=== PATIENT | male | born 1950 | race Caucasian/White ===

== ENCOUNTER 2019-05-05 15:02 | Inpatient (IN) | payer MEDICARE ==
[~2019-05-05] VITALS: Ht 177.8 cm; Wt 121.5 kg
[2019-05-05] MEDS ORDERED: ONDANSETRON 2MG/ML, 2ML IVPush ONE (16:30)
[2019-05-05] MEDS ORDERED: SODIUM CHLORIDE FLUSH 10ML SYR IVF ONE (16:30)
[2019-05-05] MEDS ORDERED: FUROSEMIDE 40 MG/4 ML IV ONE (16:30)
[2019-05-05 17:10] LABS: CULTURE INDICATED? YES; MICROSCOPIC INDICATED
[2019-05-05 17:24] LABS: ALANINE AMINOTRANSFERASE 23 U/L (12-78); ALBUMIN 2.4 g/dL (3.4-5.0); ANION GAP 5 mmol/L (5-15); CALCIUM 8.3 mg/dL (8.5-10.1); CHLORIDE 100 mmol/L (98-107)
[2019-05-05 17:28] LABS: ALKALINE PHOSPHATASE 133 U/L (45-117); BILIRUBIN,TOTAL 0.4 mg/dL (0.2-1.0); TOTAL PROTEIN 6.1 g/dL (6.4-8.2)
[2019-05-05 17:37] LABS: MD YES
[2019-05-05 17:38] LABS: MEAN CORPUSCULAR HEMOGLOBIN 25.6 pg (27.5-34.5); MEAN CORPUSCULAR HGB CONC 30.8 g/dL (33.2-36.2); MEAN CORPUSCULAR VOLUME 83.3 fL (81-97); MEAN PLATELET VOLUME 7.8 fL (7.4-10.4); PLATELET COUNT 318 x10^3/uL (130-400); RED BLOOD COUNT 2.62 x10^6/uL (4.38-5.82); RED CELL DISTRIBUTION WIDTH 18.3 % (9.4-14.8)
[2019-05-05 17:42] LABS: CLOSTRIDIUM DIFFICILE ANTIGEN NEGATIVE; CLOSTRIDIUM DIFFICILE TOXIN NEGATIVE (Negative)
[2019-05-05] MEDS ORDERED: ONDANSETRON 2MG/ML, 2ML ONE (17:43)
[2019-05-05] MEDS ORDERED: FUROSEMIDE 40 MG/4 ML ONE (17:43)
[2019-05-05] MEDS ORDERED: MORPHINE SULFATE 4 MG/ML, 1ML ONE ×2 (17:44→18:16)
[2019-05-05] MEDS: MORPHINE SULFATE 4 MG/ML, 1ML IVPush PRN ×2 (17:49→18:30)
[2019-05-05 17:51] LABS: ANISOCYTOSIS 1+; BAND#(MANUAL) 0.13 x10^3/uL; BANDS%(MANUAL) 2 % (0-7); LYMPH#(MANUAL) 0.52 x10^3/uL (1-3.4); LYMPHS% (MANUAL) 8 % (22-44); MICROCYTOSIS 1+; MONOS#(MANUAL) 0.26 x10^3/uL (0.3-2.7); MONOS% (MANUAL) 4 % (2-9); POLYCHROMASIA 1+; SEG#(MANUAL) 5.59 x10^3/uL (1.8-6.8); SEGS% (MANUAL) 86 % (42-75)
[2019-05-05 17:52] LABS: <PLATELET ESTIMATE> ADEQUATE; HYPOCHROMIA 2+
[2019-05-05 17:53] LABS: <PLT MORPHOLOGY> NORMAL PLT MORPH
[2019-05-05] MEDS ORDERED: CEFTRIAXONE PMX 1GM/50ML 50 ML IVPB ONE (18:00)
[2019-05-05] MEDS ORDERED: NS + 40MEQ KCL 1,000 ML IV ONE (18:32)
--- NOTE | 2019-05-05 18:35 | NUR ---
MD Mckenzie notified of pt's increasing O2 need & requested potassium
--- NOTE | 2019-05-05 18:41 | NUR ---
MD Mckenzie to recheck pt, I have attempted to esablish a 2nd IV x 2 w/o success, blood cultures x 2 & type & screen walked to lab.
--- NOTE | 2019-05-05 19:16 | NUR ---
REPORT FROM IRENE LANIER. YOHAN LANIER AT BEDSIDE TO TRY TO PLACE ANOTHER PIV. CALL LIGHT IN REACH
[2019-05-05 19:42] VITALS: BP 125/65
[2019-05-05 19:58] VITALS: BP 126/78
[2019-05-05] MEDS ORDERED: CARV6.252 PO (20:01)
[2019-05-05] MEDS ORDERED: LISI40TA PO (20:01)
[2019-05-05] MEDS ORDERED: SPIR25TA5 PO (20:04)
[2019-05-05] MEDS ORDERED: AMLO-150 PO (20:04)
[2019-05-05] MEDS ORDERED: FURO40TA6 PO (20:04)
[2019-05-05] MEDS ORDERED: PARO40TA3 PO (20:04)
[2019-05-05] MEDS ORDERED: TIOT18CA INH (20:04)
[2019-05-05] MEDS ORDERED: FLUT1DIS3 INH (20:04)
--- NOTE | 2019-05-05 20:04 | NUR ---
BLOOD RUNNING. PT TOLERATING WELL. VSS. MED REC COMPLETE. WAITING FOR ADMIT ORDERS. CALL LIGHT IN REACH
[2019-05-05] MEDS ORDERED: CEFTRIAXONE PMX 1GM/50ML 50 ML ONE (20:08)
[2019-05-05 20:14] VITALS: BP 134/65
[2019-05-05] MEDS ORDERED: ONDANSETRON 2MG/ML, 2ML IVPush PRN (20:30)
[2019-05-05] MEDS ORDERED: HEPARIN 5,000 UNITS/ML, 1ML SQ SCH (20:30)
[2019-05-05] MEDS ORDERED: morphine SULFATE 10 MG/ML, 1ML IVPush PRN (20:30)
[2019-05-05] MEDS ORDERED: hydrALAzine 20 MG/ML, 1ML IVPush PRN (20:30)
[2019-05-05] MEDS ORDERED: BISACODYL 10 MG SUPP PR PRN (20:30)
[2019-05-05] MEDS ORDERED: ACETAMINOPHEN 325 MG TABLET PO PRN (20:30)
[2019-05-05] MEDS ORDERED: DOCUSATE 100 MG CAPSULE PO PRN (20:30)
[2019-05-05] MEDS ORDERED: PROMETHAZINE 25 MG/ML, 1ML IM PRN (20:30)
[2019-05-05] MEDS ORDERED: POTASSIUM CHLORIDE 20 MEQ TAB.ER.PRT PO ONE (20:30)
[2019-05-05] MEDS ORDERED: POLYETHYLENE GLYCOL 17 GM PACKET PO PRN (20:30)
[2019-05-05] MEDS ORDERED: ONDANSETRON ODT 4 MG PO PRN (20:30)
[2019-05-05 20:58] LABS: FREE T4 (FREE THYROXINE) 1.27 ng/dL (0.76-1.46)
[2019-05-05] MEDS ORDERED: ALBUTEROL/IPRATROPIUM 2.5MG/0.5MG, 3 ML NPPB SCH (21:00)
[2019-05-05] MEDS ORDERED: CEFTRIAXONE PMX 1GM/50ML 50 ML IV ONE (21:00)
--- NOTE | 2019-05-05 21:00 | NUR ---
PT SWITCHED TO OXY MASK AND TOLERATING WELL. VSS. CALL LIGHT IN REACH
[2019-05-05] MEDS: NICOTINE 14MG/24 HR PATCH.TD24 TD SCH (22:57)
[2019-05-05] MEDS: CARVEDILOL 6.25 MG TABLET PO SCH (22:58)
[2019-05-05 23:09] VITALS: BP 147/92
[2019-05-06] MEDS ORDERED: ALBUTEROL/IPRATROPIUM 2.5MG/0.5MG, 3 ML NPPB PRN
[2019-05-06 01:23] VITALS: BP 115/69
[2019-05-06] MEDS: ALBUTEROL/IPRATROPIUM 2.5MG/0.5MG, 3 ML NPPB SCH ×4 (03:00→20:20)
[2019-05-06 04:09] VITALS: BP 147/92
[2019-05-06 05:04] LABS: MEAN CORPUSCULAR HEMOGLOBIN 26.4 pg (27.5-34.5); MEAN CORPUSCULAR HGB CONC 31.2 g/dL (33.2-36.2); MEAN CORPUSCULAR VOLUME 84.7 fL (81-97); MEAN PLATELET VOLUME 7.9 fL (7.4-10.4); PLATELET COUNT 271 x10^3/uL (130-400); RED BLOOD COUNT 2.65 x10^6/uL (4.38-5.82); RED CELL DISTRIBUTION WIDTH 17.6 % (9.4-14.8)
[2019-05-06 05:18] LABS: ALBUMIN 2.1 g/dL (3.4-5.0); ANION GAP 3 mmol/L (5-15); CALCIUM 8.1 mg/dL (8.5-10.1); CHLORIDE 102 mmol/L (98-107)
[2019-05-06 05:25] LABS: ALANINE AMINOTRANSFERASE 22 U/L (12-78); ALKALINE PHOSPHATASE 115 U/L (45-117); BILIRUBIN,TOTAL 0.5 mg/dL (0.2-1.0); CHOL/HDL RATIO 1.4; CHOLESTEROL, TOTAL 105 mg/dL (140-239); CREATININE 2.87 mg/dL (0.7-1.3); HDL CHOL % 71 % (26-37); HDL CHOLESTEROL (DIRECT) 75 mg/dL (40-60); LDL CHOLESTEROL,CALCULATED 18 mg/dL (54-169); LDL/HDL RATIO 0.2 (0.5-3.0); TOTAL PROTEIN 5.6 g/dL (6.4-8.2); TRIGLYCERIDES 58 mg/dL (50-200); VLDL CHOLESTEROL 12 mg/dL (0-25)
[2019-05-06 05:49] LABS: BASOPHILS # (AUTO) 0.11 x10^3/uL (0-0.1); BASOPHILS % (AUTO) 2 % (0-1); EOSINOPHILS # (AUTO) 0.11 x10^3/uL (0-0.4); EOSINOPHILS % (AUTO) 2 % (1-7); LYMPHOCYTES # (AUTO) 1.17 x10^3/uL (1-3.4); LYMPHOCYTES % (AUTO) 17 % (22-44); MD SCAN; MONOCYTES % (AUTO) 10 % (2-9); NEUTROPHILS # (AUTO) 4.89 x10^3/uL (1.8-6.8); NEUTROPHILS % (AUTO) 70 % (42-75)
[2019-05-06] MEDS: OXYcodone IR 5MG TABLET PO PRN ×2 (06:04→10:37)
[2019-05-06] MEDS: FUROSEMIDE 20 MG/2 ML IV SCH ×2 (06:06→17:58)
[2019-05-06 08:15] VITALS: BP 144/68
[2019-05-06] MEDS: POTASSIUM CHLORIDE 20 MEQ TAB.ER.PRT PO SCH (08:31)
[2019-05-06] MEDS: CARVEDILOL 6.25 MG TABLET PO SCH ×2 (08:32→20:04)
[2019-05-06] MEDS: PAROXETINE 20 MG TABLET PO SCH (08:33)
[2019-05-06] MEDS: AMLODIPINE 5 MG TABLET PO SCH (08:33)
[2019-05-06] MEDS ORDERED: TEMPLATE NON-FORMULARY MED. (Fluticasone/Salmeterol** (Advair 250-50 Diskus**) 1 PUFF) INH SCH (09:00)
[2019-05-06] MEDS ORDERED: IPRATROPIUM 0.5 MG/2.5 ML INHA NPPB SCH (09:00)
[2019-05-06] MEDS ORDERED: BUDESONIDE 0.5 MG/2 ML INHA NPPB SCH (09:00)
[2019-05-06] MEDS: BUDESONIDE 0.5 MG/2 ML INHA NPPB SCH ×2 (10:20→20:20)
[2019-05-06 14:30] VITALS: BP 100/62
[2019-05-06 20:02] VITALS: BP 114/55
[2019-05-06] MEDS: NICOTINE 14MG/24 HR PATCH.TD24 TD SCH (20:04)
[2019-05-06] MEDS ORDERED: PHARMACOKINETIC CONSULTATION MC ONE (23:30)
[2019-05-06] MEDS ORDERED: VANCOMYCIN PER PHARMACY MC PRN (23:30)
[2019-05-06] MEDS ORDERED: PHARMACOKINETIC MONITORING MC PRN (23:30)
[2019-05-06] MEDS ORDERED: VANCOMYCIN 2,300 MG in SODIUM CHLORIDE 0.9% 500 ML IV ONE (23:30)
[2019-05-07] VITALS (7 sets, daily range): BP systolic 97–164; BP diastolic 60–81
[2019-05-07] MEDS: ALBUTEROL/IPRATROPIUM 2.5MG/0.5MG, 3 ML NPPB SCH ×4 (02:44→19:20)
[2019-05-07 05:17] LABS: ANION GAP 4 mmol/L (5-15); CALCIUM 8.1 mg/dL (8.5-10.1); CHLORIDE 102 mmol/L (98-107); CREATININE 2.95 mg/dL (0.7-1.3)
[2019-05-07 05:25] LABS: MEAN CORPUSCULAR HEMOGLOBIN 26.1 pg (27.5-34.5); MEAN CORPUSCULAR HGB CONC 30.8 g/dL (33.2-36.2); MEAN CORPUSCULAR VOLUME 84.8 fL (81-97); MEAN PLATELET VOLUME 8.1 fL (7.4-10.4); PLATELET COUNT 242 x10^3/uL (130-400)
[2019-05-07 05:49] LABS: BASOPHILS # (AUTO) 0.08 x10^3/uL (0-0.1); BASOPHILS % (AUTO) 1 % (0-1); EOSINOPHILS # (AUTO) 0.16 x10^3/uL (0-0.4); EOSINOPHILS % (AUTO) 3 % (1-7); LYMPHOCYTES # (AUTO) 1.02 x10^3/uL (1-3.4); LYMPHOCYTES % (AUTO) 17 % (22-44); MD SCAN; MONOCYTES # (AUTO) 0.59 x10^3/uL (0.2-0.8); MONOCYTES % (AUTO) 10 % (2-9); NEUTROPHILS # (AUTO) 4.04 x10^3/uL (1.8-6.8); NEUTROPHILS % (AUTO) 69 % (42-75)
[2019-05-07] MEDS: CARVEDILOL 6.25 MG TABLET PO SCH ×2 (09:02→20:15)
[2019-05-07] MEDS: PAROXETINE 20 MG TABLET PO SCH (09:02)
[2019-05-07] MEDS: POTASSIUM CHLORIDE 20 MEQ TAB.ER.PRT PO SCH (09:02)
[2019-05-07] MEDS: FUROSEMIDE 20 MG/2 ML IV SCH ×2 (09:03→16:53)
[2019-05-07] MEDS: AMLODIPINE 5 MG TABLET PO SCH (09:03)
[2019-05-07] MEDS: BUDESONIDE 0.5 MG/2 ML INHA NPPB SCH ×2 (09:25→19:20)
[2019-05-07] MEDS: NICOTINE 14MG/24 HR PATCH.TD24 TD SCH (20:15)
[2019-05-08 02:54] VITALS: BP 143/79
[2019-05-08] MEDS: ALBUTEROL/IPRATROPIUM 2.5MG/0.5MG, 3 ML NPPB SCH ×4 (03:00→20:37)
[2019-05-08 05:26] LABS: BASOPHILS % (AUTO) 0 % (0-1); EOSINOPHILS # (AUTO) 0.19 x10^3/uL (0-0.4); EOSINOPHILS % (AUTO) 3 % (1-7); LYMPHOCYTES # (AUTO) 1.22 x10^3/uL (1-3.4); LYMPHOCYTES % (AUTO) 16 % (22-44); MD NO; MEAN CORPUSCULAR HEMOGLOBIN 26.6 pg (27.5-34.5); MEAN CORPUSCULAR HGB CONC 31.2 g/dL (33.2-36.2); MEAN CORPUSCULAR VOLUME 85.3 fL (81-97); MEAN PLATELET VOLUME 8.5 fL (7.4-10.4); MONOCYTES # (AUTO) 1.07 x10^3/uL (0.2-0.8); MONOCYTES % (AUTO) 14 % (2-9); NEUTROPHILS # (AUTO) 5.04 x10^3/uL (1.8-6.8); NEUTROPHILS % (AUTO) 67 % (42-75); PLATELET COUNT 241 x10^3/uL (130-400); RED BLOOD COUNT 2.91 x10^6/uL (4.38-5.82); RED CELL DISTRIBUTION WIDTH 18.1 % (9.4-14.8)
[2019-05-08 05:27] LABS: ANION GAP 3 mmol/L (5-15); CALCIUM 8.5 mg/dL (8.5-10.1); CHLORIDE 103 mmol/L (98-107); CREATININE 3.12 mg/dL (0.7-1.3)
[2019-05-08 05:28] LABS: VANCOMYCIN,RANDOM 14.8 mcg/mL
[2019-05-08] MEDS: AMLODIPINE 5 MG TABLET PO SCH (08:15)
[2019-05-08] MEDS: PAROXETINE 20 MG TABLET PO SCH (08:15)
[2019-05-08] MEDS: POTASSIUM CHLORIDE 20 MEQ TAB.ER.PRT PO SCH (08:15)
[2019-05-08] MEDS: CARVEDILOL 6.25 MG TABLET PO SCH ×2 (08:15→20:39)
[2019-05-08 08:47] VITALS: BP 147/79
[2019-05-08] MEDS ORDERED: FUROSEMIDE 20 MG TABLET PO SCH (09:00)
[2019-05-08] MEDS: BUDESONIDE 0.5 MG/2 ML INHA NPPB SCH ×2 (09:30→20:37)
[2019-05-08] MEDS ORDERED: POLYETHYLENE GLYCOL 17 GM PACKET NG PRN (12:30)
[2019-05-08] MEDS: SENNA/DOCUSATE TABLET PO SCH ×2 (14:34→20:39)
[2019-05-08] MEDS ORDERED: VANCOMYCIN 1,800 MG in SODIUM CHLORIDE 0.9% 250 ML IV SCH (15:00)
[2019-05-08 15:34] VITALS: BP 133/75
[2019-05-08 19:01] VITALS: BP 131/69
[2019-05-08] MEDS: NICOTINE 14MG/24 HR PATCH.TD24 TD SCH (20:38)
[2019-05-09] MEDS: ALBUTEROL/IPRATROPIUM 2.5MG/0.5MG, 3 ML NPPB SCH ×4 (03:05→20:52)
[2019-05-09 03:13] VITALS: BP 158/78
[2019-05-09 05:13] LABS: BASOPHILS % (AUTO) 0 % (0-1); EOSINOPHILS # (AUTO) 0.07 x10^3/uL (0-0.4); EOSINOPHILS % (AUTO) 1 % (1-7); LYMPHOCYTES # (AUTO) 1.18 x10^3/uL (1-3.4); LYMPHOCYTES % (AUTO) 16 % (22-44); MD NO; MEAN CORPUSCULAR VOLUME 83.8 fL (81-97); MONOCYTES # (AUTO) 0.97 x10^3/uL (0.2-0.8); MONOCYTES % (AUTO) 13 % (2-9); NEUTROPHILS # (AUTO) 5.37 x10^3/uL (1.8-6.8); NEUTROPHILS % (AUTO) 71 % (42-75); PLATELET COUNT 274 x10^3/uL (130-400); RED BLOOD COUNT 2.91 x10^6/uL (4.38-5.82); RED CELL DISTRIBUTION WIDTH 19.4 % (9.4-14.8)
[2019-05-09 05:24] LABS: ANION GAP 4 mmol/L (5-15); CALCIUM 8.8 mg/dL (8.5-10.1); CHLORIDE 102 mmol/L (98-107); CREATININE 2.86 mg/dL (0.7-1.3)
[2019-05-09 08:02] VITALS: BP 159/72
[2019-05-09] MEDS: BUDESONIDE 0.5 MG/2 ML INHA NPPB SCH ×2 (08:22→20:52)
[2019-05-09] MEDS: POTASSIUM CHLORIDE 20 MEQ TAB.ER.PRT PO SCH (08:32)
[2019-05-09] MEDS: AMLODIPINE 5 MG TABLET PO SCH (08:32)
[2019-05-09] MEDS: PAROXETINE 20 MG TABLET PO SCH (08:33)
[2019-05-09] MEDS: SENNA/DOCUSATE TABLET PO SCH ×2 (08:33→21:27)
[2019-05-09] MEDS: CARVEDILOL 6.25 MG TABLET PO SCH ×2 (08:33→21:27)
[2019-05-09 12:53] VITALS: BP 139/56
[2019-05-09 18:37] VITALS: BP 155/72
[2019-05-09] MEDS: NICOTINE 14MG/24 HR PATCH.TD24 TD SCH (21:27)
[2019-05-10 01:16] VITALS: BP 163/82
[2019-05-10] MEDS: ALBUTEROL/IPRATROPIUM 2.5MG/0.5MG, 3 ML NPPB SCH ×4 (03:25→21:16)
[2019-05-10 07:57] LABS: BASOPHILS # (AUTO) 0.01 x10^3/uL (0-0.1); BASOPHILS % (AUTO) 0 % (0-1); EOSINOPHILS # (AUTO) 0.19 x10^3/uL (0-0.4); EOSINOPHILS % (AUTO) 3 % (1-7); LYMPHOCYTES # (AUTO) 0.98 x10^3/uL (1-3.4); LYMPHOCYTES % (AUTO) 15 % (22-44); MD NO; MEAN CORPUSCULAR HGB CONC 30.8 g/dL (33.2-36.2); MEAN CORPUSCULAR VOLUME 84.3 fL (81-97); MEAN PLATELET VOLUME 7.4 fL (7.4-10.4); MONOCYTES # (AUTO) 0.91 x10^3/uL (0.2-0.8); MONOCYTES % (AUTO) 14 % (2-9); NEUTROPHILS # (AUTO) 4.45 x10^3/uL (1.8-6.8); NEUTROPHILS % (AUTO) 68 % (42-75); PLATELET COUNT 262 x10^3/uL (130-400); RED BLOOD COUNT 2.79 x10^6/uL (4.38-5.82); RED CELL DISTRIBUTION WIDTH 19.6 % (9.4-14.8)
[2019-05-10 08:04] LABS: ANION GAP 5 mmol/L (5-15); CALCIUM 9.1 mg/dL (8.5-10.1); CHLORIDE 106 mmol/L (98-107); CREATININE 2.65 mg/dL (0.7-1.3)
[2019-05-10 08:32] VITALS: BP 168/84
[2019-05-10] MEDS ORDERED: LISINOPRIL 20 MG TABLET PO SCH (09:00)
[2019-05-10] MEDS: BUDESONIDE 0.5 MG/2 ML INHA NPPB SCH ×2 (09:00→21:16)
[2019-05-10 09:25] VITALS: BP 167/77
[2019-05-10] MEDS: AMLODIPINE 5 MG TABLET PO SCH (09:29)
[2019-05-10] MEDS: PAROXETINE 20 MG TABLET PO SCH (09:29)
[2019-05-10] MEDS: SENNA/DOCUSATE TABLET PO SCH ×2 (09:29→21:42)
[2019-05-10] MEDS: CARVEDILOL 6.25 MG TABLET PO SCH ×2 (09:29→21:43)
[2019-05-10] MEDS: POTASSIUM CHLORIDE 20 MEQ TAB.ER.PRT PO SCH (09:30)
[2019-05-10] MEDS ORDERED: LISINOPRIL 40 MG TABLET PO SCH (11:00)
[2019-05-10 12:31] VITALS: BP 144/71
[2019-05-10] MEDS: LINEZOLID 600 MG TABLET PO SCH ×2 (14:07→21:43)
[2019-05-10 20:20] VITALS: BP 150/75
[2019-05-10 21:40] VITALS: BP 158/74
[2019-05-10] MEDS: NICOTINE 14MG/24 HR PATCH.TD24 TD SCH (21:42)
[2019-05-10] MEDS: LISINOPRIL 40 MG TABLET PO SCH (21:43)
[2019-05-11 02:07] VITALS: BP 153/76
[2019-05-11] MEDS: ALBUTEROL/IPRATROPIUM 2.5MG/0.5MG, 3 ML NPPB SCH ×4 (03:00→22:45)
[2019-05-11 05:34] LABS: MEAN CORPUSCULAR HEMOGLOBIN 26.5 pg (27.5-34.5); MEAN CORPUSCULAR HGB CONC 31.4 g/dL (33.2-36.2); MEAN CORPUSCULAR VOLUME 84.3 fL (81-97); MEAN PLATELET VOLUME 7.8 fL (7.4-10.4); PLATELET COUNT 244 x10^3/uL (130-400); RED CELL DISTRIBUTION WIDTH 19.6 % (9.4-14.8)
[2019-05-11 05:35] LABS: ANION GAP 4 mmol/L (5-15); CALCIUM 8.7 mg/dL (8.5-10.1); CHLORIDE 107 mmol/L (98-107)
[2019-05-11 05:57] LABS: BASOPHILS # (AUTO) 0.01 x10^3/uL (0-0.1); BASOPHILS % (AUTO) 0 % (0-1); EOSINOPHILS # (AUTO) 0.05 x10^3/uL (0-0.4); EOSINOPHILS % (AUTO) 1 % (1-7); LYMPHOCYTES # (AUTO) 0.91 x10^3/uL (1-3.4); LYMPHOCYTES % (AUTO) 12 % (22-44); MD SCAN; MONOCYTES # (AUTO) 0.75 x10^3/uL (0.2-0.8); MONOCYTES % (AUTO) 10 % (2-9); NEUTROPHILS # (AUTO) 5.75 x10^3/uL (1.8-6.8); NEUTROPHILS % (AUTO) 77 % (42-75)
[2019-05-11 07:28] VITALS: BP 162/81
[2019-05-11] MEDS: BUDESONIDE 0.5 MG/2 ML INHA NPPB SCH ×2 (09:00→22:45)
[2019-05-11] MEDS: POTASSIUM CHLORIDE 20 MEQ TAB.ER.PRT PO SCH (09:13)
[2019-05-11] MEDS: SENNA/DOCUSATE TABLET PO SCH ×2 (09:13→20:29)
[2019-05-11] MEDS: CARVEDILOL 6.25 MG TABLET PO SCH ×2 (09:13→20:29)
[2019-05-11] MEDS: AMLODIPINE 5 MG TABLET PO SCH (09:13)
[2019-05-11] MEDS: LISINOPRIL 40 MG TABLET PO SCH ×2 (09:13→20:29)
[2019-05-11] MEDS: LINEZOLID 600 MG TABLET PO SCH ×2 (09:13→20:28)
[2019-05-11 12:28] VITALS: BP 124/72
[2019-05-11] MEDS: DOXAZOSIN 1MG TABLET PO SCH (12:29)
[2019-05-11] MEDS ORDERED: FUROSEMIDE 40 MG TABLET PO SCH (12:30)
[2019-05-11] MEDS ORDERED: FUROSEMIDE 20 MG/2 ML IV ONE (13:00)
[2019-05-11] MEDS: TAMSULOSIN 0.4 MG CAP.ER.24H PO SCH (13:37)
[2019-05-11 17:23] VITALS: BP 150/82
[2019-05-11 17:25] VITALS: BP 150/82
[2019-05-11] MEDS: FUROSEMIDE 40 MG/4 ML IV SCH (17:26)
[2019-05-11 20:02] VITALS: BP 150/77
[2019-05-11] MEDS: NICOTINE 14MG/24 HR PATCH.TD24 TD SCH (20:29)
[2019-05-12 00:08] VITALS: BP 136/68
[2019-05-12] MEDS: ALBUTEROL/IPRATROPIUM 2.5MG/0.5MG, 3 ML NPPB SCH ×4 (02:37→20:46)
[2019-05-12 06:52] LABS: BASOPHILS # (AUTO) 0.03 x10^3/uL (0-0.1); BASOPHILS % (AUTO) 1 % (0-1); EOSINOPHILS # (AUTO) 0.16 x10^3/uL (0-0.4); EOSINOPHILS % (AUTO) 3 % (1-7); LYMPHOCYTES # (AUTO) 0.72 x10^3/uL (1-3.4); LYMPHOCYTES % (AUTO) 12 % (22-44); MD NO; MEAN CORPUSCULAR HEMOGLOBIN 26.3 pg (27.5-34.5); MEAN CORPUSCULAR HGB CONC 31.3 g/dL (33.2-36.2); MONOCYTES # (AUTO) 0.77 x10^3/uL (0.2-0.8); MONOCYTES % (AUTO) 13 % (2-9); NEUTROPHILS # (AUTO) 4.47 x10^3/uL (1.8-6.8); NEUTROPHILS % (AUTO) 73 % (42-75); PLATELET COUNT 263 x10^3/uL (130-400); RED CELL DISTRIBUTION WIDTH 20.1 % (9.4-14.8)
[2019-05-12 07:03] LABS: ANION GAP 3 mmol/L (5-15); CALCIUM 9.1 mg/dL (8.5-10.1); CHLORIDE 110 mmol/L (98-107)
[2019-05-12 07:48] VITALS: BP 163/78
[2019-05-12] MEDS: FUROSEMIDE 40 MG/4 ML IV SCH ×2 (08:58→16:52)
[2019-05-12] MEDS: POTASSIUM CHLORIDE 20 MEQ TAB.ER.PRT PO SCH (09:02)
[2019-05-12] MEDS: CARVEDILOL 6.25 MG TABLET PO SCH ×2 (09:16→20:40)
[2019-05-12] MEDS: SENNA/DOCUSATE TABLET PO SCH ×2 (09:16→20:40)
[2019-05-12] MEDS: DOXAZOSIN 1MG TABLET PO SCH (09:16)
[2019-05-12] MEDS: LINEZOLID 600 MG TABLET PO SCH (09:16)
[2019-05-12] MEDS: TAMSULOSIN 0.4 MG CAP.ER.24H PO SCH (09:16)
[2019-05-12] MEDS: LISINOPRIL 40 MG TABLET PO SCH ×2 (09:16→20:39)
[2019-05-12] MEDS: AMLODIPINE 5 MG TABLET PO SCH (09:17)
[2019-05-12] MEDS: SPIRONOLACTONE 25 MG TABLET PO SCH (09:17)
[2019-05-12] MEDS: BUDESONIDE 0.5 MG/2 ML INHA NPPB SCH ×2 (09:23→20:46)
[2019-05-12 11:00] VITALS: BP 121/75
[2019-05-12 12:41] LABS: % IRON SATURATION 5 % (20-55); IRON LEVEL 13 mcg/dL (65-175); TOTAL IRON BINDING CAPACITY 239 mcg/dL (250-450)
[2019-05-12 13:10] VITALS: BP 122/68
[2019-05-12] MEDS: FERROUS SULFATE 325 MG TABLET PO SCH (16:52)
[2019-05-12 19:43] VITALS: BP 120/67
[2019-05-12] MEDS: NICOTINE 14MG/24 HR PATCH.TD24 TD SCH (20:39)
[2019-05-13 01:06] VITALS: BP 142/73
[2019-05-13] MEDS: ALBUTEROL/IPRATROPIUM 2.5MG/0.5MG, 3 ML NPPB SCH ×4 (02:50→21:40)
[2019-05-13 05:23] LABS: ANION GAP 5 mmol/L (5-15); CALCIUM 8.4 mg/dL (8.5-10.1); CHLORIDE 110 mmol/L (98-107); CREATININE 2.67 mg/dL (0.7-1.3)
[2019-05-13] MEDS: BUDESONIDE 0.5 MG/2 ML INHA NPPB SCH ×2 (06:39→21:40)
[2019-05-13 08:17] VITALS: BP 136/70
[2019-05-13] MEDS: SENNA/DOCUSATE TABLET PO SCH ×2 (09:00→22:07)
[2019-05-13] MEDS: TAMSULOSIN 0.4 MG CAP.ER.24H PO SCH (09:37)
[2019-05-13] MEDS: DOXAZOSIN 1MG TABLET PO SCH (09:37)
[2019-05-13] MEDS: POTASSIUM CHLORIDE 20 MEQ TAB.ER.PRT PO SCH (09:37)
[2019-05-13] MEDS: FUROSEMIDE 40 MG/4 ML IV SCH ×2 (09:37→17:47)
[2019-05-13] MEDS: FERROUS SULFATE 325 MG TABLET PO SCH ×2 (09:37→17:47)
[2019-05-13] MEDS: SPIRONOLACTONE 25 MG TABLET PO SCH (09:37)
[2019-05-13] MEDS: AMLODIPINE 5 MG TABLET PO SCH (09:37)
[2019-05-13] MEDS: CARVEDILOL 6.25 MG TABLET PO SCH ×2 (09:38→22:06)
[2019-05-13] MEDS: LISINOPRIL 40 MG TABLET PO SCH ×2 (09:38→22:06)
[2019-05-13 12:38] VITALS: BP 142/68
[2019-05-13 19:15] VITALS: BP 133/81
[2019-05-13] MEDS: NICOTINE 14MG/24 HR PATCH.TD24 TD SCH (22:06)
[2019-05-14 01:01] VITALS: BP 164/74
[2019-05-14] MEDS: ALBUTEROL/IPRATROPIUM 2.5MG/0.5MG, 3 ML NPPB SCH ×2 (04:00→09:04)
[2019-05-14 05:15] LABS: BASOPHILS # (AUTO) 0.01 x10^3/uL (0-0.1); BASOPHILS % (AUTO) 0 % (0-1); EOSINOPHILS # (AUTO) 0.13 x10^3/uL (0-0.4); EOSINOPHILS % (AUTO) 2 % (1-7); LYMPHOCYTES # (AUTO) 1.11 x10^3/uL (1-3.4); LYMPHOCYTES % (AUTO) 18 % (22-44); MD NO; MEAN CORPUSCULAR HEMOGLOBIN 25.9 pg (27.5-34.5); MEAN CORPUSCULAR HGB CONC 30.9 g/dL (33.2-36.2); MEAN CORPUSCULAR VOLUME 83.8 fL (81-97); MEAN PLATELET VOLUME 7.8 fL (7.4-10.4); MONOCYTES # (AUTO) 0.72 x10^3/uL (0.2-0.8); MONOCYTES % (AUTO) 12 % (2-9); NEUTROPHILS # (AUTO) 4.06 x10^3/uL (1.8-6.8); NEUTROPHILS % (AUTO) 67 % (42-75); PLATELET COUNT 279 x10^3/uL (130-400); RED BLOOD COUNT 2.75 x10^6/uL (4.38-5.82); RED CELL DISTRIBUTION WIDTH 20.5 % (9.4-14.8)
[2019-05-14 05:19] LABS: ANION GAP 5 mmol/L (5-15); CALCIUM 8.9 mg/dL (8.5-10.1); CHLORIDE 108 mmol/L (98-107)
[2019-05-14 05:20] LABS: CREATININE 2.62 mg/dL (0.7-1.3)
[2019-05-14 06:42] VITALS: BP 144/76
[2019-05-14] MEDS: FUROSEMIDE 40 MG/4 ML IV SCH (08:57)
[2019-05-14] MEDS: DOXAZOSIN 1MG TABLET PO SCH (08:58)
[2019-05-14] MEDS: POTASSIUM CHLORIDE 20 MEQ TAB.ER.PRT PO SCH (08:58)
[2019-05-14] MEDS: FERROUS SULFATE 325 MG TABLET PO SCH ×2 (08:58→17:21)
[2019-05-14] MEDS: AMLODIPINE 5 MG TABLET PO SCH (08:58)
[2019-05-14] MEDS: TAMSULOSIN 0.4 MG CAP.ER.24H PO SCH (08:58)
[2019-05-14] MEDS: LISINOPRIL 40 MG TABLET PO SCH ×2 (08:58→20:51)
[2019-05-14] MEDS: CARVEDILOL 6.25 MG TABLET PO SCH ×2 (08:59→20:50)
[2019-05-14] MEDS: SENNA/DOCUSATE TABLET PO SCH ×2 (08:59→20:50)
[2019-05-14] MEDS: SPIRONOLACTONE 25 MG TABLET PO SCH (08:59)
[2019-05-14] MEDS: BUDESONIDE 0.5 MG/2 ML INHA NPPB SCH ×2 (09:04→20:31)
[2019-05-14 12:15] VITALS: BP 132/77
[2019-05-14 18:58] VITALS: BP 145/91
[2019-05-14] MEDS: FUROSEMIDE 40 MG TABLET PO SCH (20:50)
[2019-05-14] MEDS: NICOTINE 14MG/24 HR PATCH.TD24 TD SCH (20:54)
[2019-05-15 01:39] VITALS: BP 153/82
[2019-05-15 05:49] LABS: BASOPHILS % (AUTO) 0 % (0-1); EOSINOPHILS # (AUTO) 0.12 x10^3/uL (0-0.4); EOSINOPHILS % (AUTO) 2 % (1-7); LYMPHOCYTES # (AUTO) 1.05 x10^3/uL (1-3.4); LYMPHOCYTES % (AUTO) 16 % (22-44); MD NO; MEAN CORPUSCULAR HEMOGLOBIN 25.8 pg (27.5-34.5); MEAN CORPUSCULAR VOLUME 83.1 fL (81-97); MEAN PLATELET VOLUME 7.6 fL (7.4-10.4); MONOCYTES # (AUTO) 0.74 x10^3/uL (0.2-0.8); MONOCYTES % (AUTO) 11 % (2-9); NEUTROPHILS # (AUTO) 4.74 x10^3/uL (1.8-6.8); NEUTROPHILS % (AUTO) 71 % (42-75); PLATELET COUNT 312 x10^3/uL (130-400); RED BLOOD COUNT 2.76 x10^6/uL (4.38-5.82); RED CELL DISTRIBUTION WIDTH 20.5 % (9.4-14.8)
[2019-05-15 06:06] LABS: ANION GAP 5 mmol/L (5-15); CALCIUM 8.9 mg/dL (8.5-10.1); CHLORIDE 110 mmol/L (98-107)
[2019-05-15 06:08] LABS: CREATININE 2.49 mg/dL (0.7-1.3)
[2019-05-15 07:06] VITALS: BP 126/72
[2019-05-15] MEDS: POTASSIUM CHLORIDE 20 MEQ TAB.ER.PRT PO SCH (08:43)
[2019-05-15] MEDS: FERROUS SULFATE 325 MG TABLET PO SCH ×2 (08:43→16:54)
[2019-05-15] MEDS: SPIRONOLACTONE 25 MG TABLET PO SCH (08:44)
[2019-05-15] MEDS: TAMSULOSIN 0.4 MG CAP.ER.24H PO SCH (08:44)
[2019-05-15] MEDS: DOXAZOSIN 1MG TABLET PO SCH (08:44)
[2019-05-15] MEDS: LISINOPRIL 40 MG TABLET PO SCH ×2 (08:44→20:15)
[2019-05-15] MEDS: CARVEDILOL 6.25 MG TABLET PO SCH ×2 (08:44→20:15)
[2019-05-15] MEDS: SENNA/DOCUSATE TABLET PO SCH (08:44)
[2019-05-15] MEDS: FUROSEMIDE 40 MG TABLET PO SCH ×2 (08:44→20:15)
[2019-05-15] MEDS: AMLODIPINE 5 MG TABLET PO SCH (08:44)
[2019-05-15] MEDS: BUDESONIDE 0.5 MG/2 ML INHA NPPB SCH ×2 (08:50→19:25)
[2019-05-15] MEDS ORDERED: LOPERAMIDE 2 MG CAPSULE PO PRN (14:00)
[2019-05-15] MEDS ORDERED: LOPERAMIDE 2 MG CAPSULE PO ONE (14:00)
[2019-05-15 14:10] VITALS: BP 129/67
[2019-05-15 18:48] VITALS: BP 133/71
[2019-05-15] MEDS: NICOTINE 14MG/24 HR PATCH.TD24 TD SCH (20:16)
[2019-05-16 01:31] VITALS: BP 144/73
[2019-05-16 04:51] LABS: BASOPHILS % (AUTO) 0 % (0-1); EOSINOPHILS # (AUTO) 0.17 x10^3/uL (0-0.4); EOSINOPHILS % (AUTO) 3 % (1-7); LYMPHOCYTES # (AUTO) 0.97 x10^3/uL (1-3.4); LYMPHOCYTES % (AUTO) 14 % (22-44); MD NO; MEAN CORPUSCULAR HEMOGLOBIN 26.4 pg (27.5-34.5); MEAN CORPUSCULAR HGB CONC 31.5 g/dL (33.2-36.2); MEAN CORPUSCULAR VOLUME 83.7 fL (81-97); MEAN PLATELET VOLUME 7.6 fL (7.4-10.4); MONOCYTES # (AUTO) 0.77 x10^3/uL (0.2-0.8); MONOCYTES % (AUTO) 11 % (2-9); NEUTROPHILS # (AUTO) 4.93 x10^3/uL (1.8-6.8); NEUTROPHILS % (AUTO) 72 % (42-75); PLATELET COUNT 304 x10^3/uL (130-400); RED BLOOD COUNT 2.74 x10^6/uL (4.38-5.82); RED CELL DISTRIBUTION WIDTH 19.7 % (9.4-14.8)
[2019-05-16 05:00] LABS: ANION GAP 4 mmol/L (5-15); CALCIUM 8.8 mg/dL (8.5-10.1); CHLORIDE 111 mmol/L (98-107)
[2019-05-16 05:01] LABS: CREATININE 2.38 mg/dL (0.7-1.3)
[2019-05-16 06:51] VITALS: BP 160/82
[2019-05-16] MEDS: BUDESONIDE 0.5 MG/2 ML INHA NPPB SCH (07:44)
[2019-05-16] MEDS: AMLODIPINE 5 MG TABLET PO SCH (08:27)
[2019-05-16] MEDS: SPIRONOLACTONE 25 MG TABLET PO SCH (08:27)
[2019-05-16] MEDS: DOXAZOSIN 1MG TABLET PO SCH (08:28)
[2019-05-16] MEDS: FUROSEMIDE 40 MG TABLET PO SCH (08:28)
[2019-05-16] MEDS: CARVEDILOL 6.25 MG TABLET PO SCH (08:28)
[2019-05-16] MEDS: LISINOPRIL 40 MG TABLET PO SCH (08:28)
[2019-05-16] MEDS: TAMSULOSIN 0.4 MG CAP.ER.24H PO SCH (08:28)
[2019-05-16] MEDS: FERROUS SULFATE 325 MG TABLET PO SCH ×2 (08:28→16:16)
[2019-05-16] MEDS: POTASSIUM CHLORIDE 20 MEQ TAB.ER.PRT PO SCH (09:00)
[2019-05-16 12:23] VITALS: BP 138/72
[2019-05-16] MEDS ORDERED: FURO40TA6 PO (16:51)
[2019-05-16] MEDS ORDERED: FERR-51 PO (16:51)
[2019-05-16] MEDS ORDERED: TAMS-11 PO (16:51)
[2019-05-16] MEDS ORDERED: DOXA1TAB PO (16:51)
[2019-05-16] MEDS ORDERED: FLU VACC QS2019-20 36MOS UP/PF 0.5 ML IM-VACC ONE (18:00)
== END 2019-05-16 19:34 | disposition home health service (06) | DRG 682 ==
LOC: ED 17:12 → EDIP 18:33 → 5SO 21:57
PROVIDERS: ADMIT Internal Medicine; ATTEND Internal Medicine
PROC: 30233N1 Transfusion of Nonautologous Red Blood Cells into Peripheral Vein, Percutaneous Approach (ICD-10-PCS; 2019-05-05)
PROC: 5A09357 Assistance with Respiratory Ventilation, Less than 24 Consecutive Hours, Continuous Positive Airway Pressure (ICD-10-PCS; principal; 2019-05-07)
PROC: 5A09357 Assistance with Respiratory Ventilation, Less than 24 Consecutive Hours, Continuous Positive Airway Pressure (ICD-10-PCS; 2019-05-08)
PROC: 5A09357 Assistance with Respiratory Ventilation, Less than 24 Consecutive Hours, Continuous Positive Airway Pressure (ICD-10-PCS; 2019-05-09)
PROC: 5A09357 Assistance with Respiratory Ventilation, Less than 24 Consecutive Hours, Continuous Positive Airway Pressure (ICD-10-PCS; 2019-05-10)
PROC: 5A09357 Assistance with Respiratory Ventilation, Less than 24 Consecutive Hours, Continuous Positive Airway Pressure (ICD-10-PCS; 2019-05-11)
PROC: 5A09357 Assistance with Respiratory Ventilation, Less than 24 Consecutive Hours, Continuous Positive Airway Pressure (ICD-10-PCS; 2019-05-15)
PROC: 3E02340 Introduction of Influenza Vaccine into Muscle, Percutaneous Approach (ICD-10-PCS; 2019-05-15)
DX: N17.0 Acute kidney failure with tubular necrosis (principal); J96.21 Acute and chronic respiratory failure with hypoxia; I50.43 Acute on chronic combined systolic (congestive) and diastolic (congestive) heart failure; I13.0 Hypertensive heart and chronic kidney disease with heart failure and stage 1 through stage 4 chronic kidney disease, or unspecified chronic kidney disease; I44.2 Atrioventricular block, complete; N39.0 Urinary tract infection, site not specified; N18.3 Chronic kidney disease, stage 3 (moderate); D53.9 Nutritional anemia, unspecified; D63.8 Anemia in other chronic diseases classified elsewhere; E66.01 Morbid (severe) obesity due to excess calories; E87.6 Hypokalemia; F17.210 Nicotine dependence, cigarettes, uncomplicated; G47.33 Obstructive sleep apnea (adult) (pediatric); G89.29 Other chronic pain; I08.3 Combined rheumatic disorders of mitral, aortic and tricuspid valves; I27.21 Secondary pulmonary arterial hypertension; I27.81 Cor pulmonale (chronic); I87.2 Venous insufficiency (chronic) (peripheral); I88.9 Nonspecific lymphadenitis, unspecified; I89.0 Lymphedema, not elsewhere classified; J44.9 Chronic obstructive pulmonary disease, unspecified; N20.0 Calculus of kidney; N40.1 Benign prostatic hyperplasia with lower urinary tract symptoms; B95.2 Enterococcus as the cause of diseases classified elsewhere; F41.9 Anxiety disorder, unspecified; R33.8 Other retention of urine; Z68.25 Body mass index [BMI] 25.0-25.9, adult; Z79.899 Other long term (current) drug therapy
CPT/HCPCS: 36415; 36430; 71045; 74176; 80048; 80053; 80061; 80202; 81001; 82728; 83036; 83540; 83550; 83605; 83735; 83880; 84439; 84443; 85025; 86850; 86900; 86923; 87040; 87076; 87077; 87086; 87186; 87324; 89055; 90686; 93005; 93306; 94640; 96374; 96375; G0378; J0696; J1940; J2405; J3370; J7620; J7626; J2270; J7040; J7050; P9016